=== PATIENT | male | born 1990 | race African-American/Black ===

== ENCOUNTER 2017-11-28 20:53 | Emergency (ER) | payer SELFPAY | END 2017-11-28 21:38 | disposition home or self-care (01) | LOC: SCSER 20:53 | DX: M54.2 Cervicalgia (principal); M54.9 Dorsalgia, unspecified; V43.62XA Car passenger injured in collision with other type car in traffic accident, initial encounter | CPT/HCPCS: 99283 ==

== ENCOUNTER 2019-04-02 12:30 | Emergency (ER) | payer SELFPAY ==
[2019-04-02] MEDS ORDERED: Dexamethasone 4 mg/ml Vial ONE (13:00)
== END 2019-04-02 13:13 | disposition home or self-care (01) ==
LOC: ERS 12:30
DX: J02.9 Acute pharyngitis, unspecified (principal)
CPT/HCPCS: 87081; 87430; 99283; J1100

== ENCOUNTER 2023-08-21 14:21 | Emergency (ER) | payer OTHER ==
[2023-08-21] MEDS ORDERED: HYDROcodone/Acetaminophen 10/325 mg Tablet ONE (15:15)
[2023-08-21] MEDS ORDERED: Lidocaine 1% w/Epinephrine 1:100K 20 ML VIAL ONE (15:15)
== END 2023-08-21 16:26 | disposition home or self-care (01) ==
LOC: ERS 14:21
DX: S01.511A Laceration without foreign body of lip, initial encounter (principal); W22.8XXA Striking against or struck by other objects, initial encounter
CPT/HCPCS: 12013; 70486